=== PATIENT | female | born 1955 ===

== ENCOUNTER 2021-02-13 21:25 | Emergency (ER) | payer OTHER, SELFPAY ==
[2021-02-13 21:32] VITALS: BP 112/64; PULSE 78; O2SAT 98
[2021-02-13 21:33] VITALS: BP 140/73; PULSE 73; RESP 17; TEMP 35.9; O2SAT 95; BMI 38.7
--- NOTE | 2021-02-13 21:56 | PC.NURSE ---
Patient's med rec completed and have patient to review her med list, patient made one correction and okayed the med recs, patient reported she is compliant with her medication, will continue to monitor.
[2021-02-13 22:22] LABS: MANUAL DIFF FLAG NO
[2021-02-13 22:23] LABS: Basophils Percent Auto 0.4 % (0-2); Eosinophils Absolute Auto 0.5 X10*3/uL (0.0-0.4); Eosinophils Percent Auto 6.1 % (0-4); Hematocrit 37.8 % (37-47); Hemoglobin 12.7 g/dl (12.0-16.0); Imm Gran Abs Auto 0.04 X10*3/uL (0.00-0.03); Imm Gran Pct Auto 0.5 % (0.0-0.4); Lymphocytes Absolute Auto 2.7 X10*3/uL (1.2-4.9); Lymphocytes Percent Auto 32.8 % (20-40); Mean Corpuscular HGB Conc 33.6 g/dl (31.0-35.0); Mean Corpuscular Hemoglobin 30.8 pg (27.0-33.0); Mean Corpuscular Volume 91.5 fL (80-98); Mean Platelet Volume 8.8 fL (9.4-12.3); Monocytes Absolute Auto 0.4 X10*3/uL (0.1-1.2); Monocytes Percent Auto 4.5 % (2-11); Neutrophils Absolute Auto 4.5 X10*3/uL (2.0-8.3); Neutrophils Percent Auto 55.7 % (45-73); Platelet Count 301 X10*3/uL (160-400); Red Blood Count 4.13 X10*6/uL (4.20-5.50); Red Cell Distribution Width 13.4 % (11.0-16.0); White Blood Count 8.2 X10*3/uL (4.8-10.8)
[2021-02-13 22:26] LABS: Glucose Urine UA NEG (NEG); Leukocyte Esterase Urine NEG (NEG); Nitrite Urine NEG (NEG); Specific Gravity - Urine <= 1.005 (1.005-1.025); Urine Blood NEG (NEG); Urine Ketones NEG (NEG); Urine Protein NEG (NEG-TRACE)
[2021-02-13 22:27] LABS: Appearance Urine CLEAR; Color Urine STRAW
[2021-02-13 22:42] LABS: Amphetamine Screen Urine Not Detected (Not Detect); Barbiturates, Urine Not Detected (Not Detect); Benzodiazepines Screen Urine Not Detected (Not Detect); Cannabinoid Screen Urine Not Detected (Not Detect); Cocaine Screen Urine Not Detected (Not Detect); Opiate Screen Urine Not Detected (Not Detect); Phencyclidine Screen Urine Not Detected (Not Detect)
[2021-02-13 22:45] LABS: Ethanol 179 mg/dL
[2021-02-13 22:49] LABS: Alanine Aminotransferase 29 U/L (0-31); Albumin Level 4.3 g/dL (3.5-5.0); Alkaline Phosphatase 95 U/L (39-117); Anion Gap 18 (12-20); Aspartate Amino Transferase 22 U/L (5-31); Bilirubin Direct < 0.2 mg/dL (0.0-0.5); Bilirubin Total 0.3 mg/dL (0.0-1.0); Blood Urea Nitrogen 14 mg/dL (9-16); Calcium 9.4 mg/dL (8.4-10.2); Carbon Dioxide 23 mmol/L (22-29); Chloride 103 mmol/L (96-108); Creatinine Clr Calc Pharmacy 82.2; Estimated Glomerular Filt Rate > 60; Glucose Random 80 mg/dL (60-115); Sodium 140 mmol/L (135-145); Total Protein 7.4 g/dL (6.5-8.0)
[2021-02-13 22:56] LABS: COVID-19 Test Negative (Negative); IDNOW Serial# 9DD0AD1C
--- NOTE | 2021-02-13 23:02 | ED_ITS ---
HPI - Psych General Chief Complaint: Psychiatric Symptoms Stated Complaint: SI Time Seen by Provider: 02/13/21 23:02 Source: patient Mode of arrival: EMS History of Present Illness HPI Narrative: 66-year-old female who is brought in by EMS after having called 911 from a [employer] store and reporting that she was feeling depressed and ex periencing suicidal ideation. On further questioning patient states that she got into a verbal altercation with her , but states this is nothing new and there had been multiple stressors. She states that she did drink alcohol and then due to the stressful situation decided that she needed to leave the house and go for a walk. She states that then became late and she got scared. She denies being currently suicidal and feels stressed because although she has a psychiatrist and a therapist she does not feel that they really help . She she says she feels like groups might be better as she feels that it would be a shared experience of people who better know what I am going through . Patient states that she often gets triggered by her and that it seems to be happening more frequently. Related Data Home Medications Medication Instructions Recorded Confirmed clonazepam 0.5 - 1 tab PO TID PRN 02/13/21 02/13/21 gabapentin 800 mg PO BID 02/13/21 02/13/21 hydrochlorothiazide 25 mg PO DAILY 02/13/21 02/13/21 oxcarbazepine 150 mg PO TID 02/13/21 02/13/21 simvastatin 20 mg PO BEDTIME 02/13/21 02/13/21 venlafaxine 150 mg PO BID 02/13/21 02/13/21 Allergies Allergy/AdvReac Type Severity Reaction Status Date / Time No Known Allergies Allergy Unverified 04/30/20 17:00 Review of Systems Review of Systems: Pertinent positives and negatives as stated in HPI 10 point review of systems is otherwise negative. [facility] Past Medical History Source: nursing notes reviewed Social History Social History Advance Directives: No Advance Directives Information Provided: Yes Physical Exam Vital Signs: Vital Signs: Last Vital Signs Temp 98.7 F 02/14/21 00:18 Pulse 74 02/14/21 00:18 Resp 17 02/14/21 00:18 BP 117/52 L 02/14/21 00:18 Pulse Ox 98 07/04/21 00:18 Body Mass Index 38.7 VITAL SIGNS: Reviewed. GENERAL: Well developed, well nourished, in no acute distress. HEAD: Normocephalic/atraumatic EYES: PERRLA, EOMI OROPHARYNX: no oral lesions noted, posterior pharynx clear LUNGS: Normal breath sounds. No adventitious sounds or accessory muscle use. SpO2<98> CARDIOVASCULAR: Regular rate and rhythm without noted murmurs ABDOMEN: Soft, non-tender, non-distended with bowel sounds. SKIN: Inspection of the skin reveals no rashes NEUROLOGIC: Alert and oriented x 4. Strength and sensation to light touch were grossly intact x 4. Course Course Course Narrative: 66-year-old female with history and clinical presentation consistent with depression, suicidal thoughts likely secondary to situational events as well as intoxication with alcohol. However, patient was encouraged to speak with the behavioral team express her wishes for a group setting. Patient is otherwise medically cleared for evaluation by the behavioral team. Reevaluation(s) Reevaluation #1: Patient placed in physician observation because the patient needed more time to become sober and be evaluated by the behavioral team. At the time observation was started the patient's vital signs were stable, patient is alert and oriented, neuro: Nonfocal, CV RRR, lungs clear MDM - Psych Lab Data Result diagrams: 02/13/21 22:00 02/13/21 22:09 Labs: Lab Results 02/13/21 02/13/21 02/13/21 Range/Units 22:00 22:00 22:01 WBC 8.2 (4.8-10.8) X10*3/uL RBC 4.13 L (4.20-5.50) X10*6/uL Hgb 12.7 (12.0-16.0) g/dl Hct 37.8 (37-47) % MCV 91.5 (80-98) fL MCH 30.8 (27.0-33.0) pg MCHC 33.6 (31.0-35.0) g/dl RDW 13.4 (11.0-16.0) % Plt Count 301 (160-400) X10*3/uL MPV 8.8 L (9.4-12.3) fL Immature Gran % (Auto) 0.5 H (0.0-0.4) % Neut % (Auto) 55.7 (45-73) % Lymph % (Auto) 32.8 (20-40) % [place] % (Auto) 4.5 (2-11) % Eos % (Auto) 6.1 H (0-4) % Baso % (Auto) 0.4 (0-2) % Lymph # (Auto) 2.7 (1.2-4.9) X10*3/uL [place] # (Auto) 0.4 (0.1-1.2) X10*3/uL Eos # (Auto) 0.5 H (0.0-0.4) X10*3/uL Baso # (Auto) 0.0 (0.0-0.2) X10*3/uL Abs Immat Gran (auto) 0.04 H (0.00-0.03) X10*3/uL Absolute Neuts (auto) 4.5 (2.0-8.3) X10*3/uL Absolute Nucleated RBC 0.000 (0.0-0.012) X10*3/uL Nucleated RBC % (auto) 0.0 (0.0-0.2) /100WBC Sodium (135-145) mmol/L Potassium (3.3-5.1) mmol/L Chloride (96-108) mmol/L Carbon Dioxide (22-29) mmol/L Anion Gap (12-20) BUN (9-16) mg/dL Creatinine (0.5-1.4) mg/dL Estim Creat Clear Calc Estimated GFR Random Glucose (60-115) mg/dL Calcium (8.4-10.2) mg/dL Total Bilirubin (0.0-1.0) mg/dL Direct Bilirubin (0.0-0.5) mg/dL AST (5-31) U/L ALT (0-31) U/L Alkaline Phosphatase (39-117) U/L Total Protein (6.5-8.0) g/dL Albumin (3.5-5.0) g/dL Urine Color Urine Appearance Urine pH (5.0-8.0) Ur Specific [place] (1.005-1.025) Urine Protein (NEG-TRACE) MG/DL Urine Glucose (UA) (NEG) MG/DL Urine Ketones (NEG) MG/DL Urine Blood (NEG) Urine Nitrite (NEG) Ur Leukocyte Esterase (NEG) Urine Opiates Screen Not Detected (Not Detect) Ur Barbiturates Screen Not Detected (Not Detect) Ur Phencyclidine Scrn Not Detected (Not Detect) Ur Amphetamines Screen Not Detected (Not Detect) U Benzodiazepines Scrn Not Detected (Not Detect) Urine Cocaine Screen Not Detected (Not Detect) U Marijuana (THC) Screen Not Detected (Not Detect) Ethyl Alcohol mg/dL COVID-19 (AFSANEH) Negative (Negative) COVID-19 Clin Com See Note 02/13/21 02/13/21 02/13/21 Range/Units 22:01 22:09 22:09 WBC (4.8-10.8) X10*3/uL RBC (4.20-5.50) X10*6/uL Hgb (12.0-16.0) g/dl Hct (37-47) % MCV (80-98) fL MCH (27.0-33.0) pg MCHC (31.0-35.0) g/dl RDW (11.0-16.0) % Plt Count (160-400) X10*3/uL MPV (9.4-12.3) fL Immature Gran % (Auto) (0.0-0.4) % Neut % (Auto) (45-73) % Lymph % (Auto) (20-40) % [place] % (Auto) (2-11) % Eos % (Auto) (0-4) % Baso % (Auto) (0-2) % Lymph # (Auto) (1.2-4.9) X10*3/uL [place] # (Auto) (0.1-1.2) X10*3/uL Eos # (Auto) (0.0-0.4) X10*3/uL Baso # (Auto) (0.0-0.2) X10*3/uL Abs Immat Gran (auto) (0.00-0.03) X10*3/uL Absolute Neuts (auto) (2.0-8.3) X10*3/uL Absolute Nucleated RBC (0.0-0.012) X10*3/uL Nucleated RBC % (auto) (0.0-0.2) /100WBC Sodium 140 (135-145) mmol/L Potassium 4.0 (3.3-5.1) mmol/L Chloride 103 (96-108) mmol/L Carbon Dioxide 23 (22-29) mmol/L Anion Gap 18 (12-20) BUN 14 (9-16) mg/dL Creatinine 0.70 (0.5-1.4) mg/dL Estim Creat Clear Calc 82.2 Estimated GFR > 60 Random Glucose 80 (60-115) mg/dL Calcium 9.4 (8.4-10.2) mg/dL Total Bilirubin 0.3 (0.0-1.0) mg/dL Direct Bilirubin < 0.2 (0.0-0.5) mg/dL AST 22 (5-31) U/L ALT 29 (0-31) U/L Alkaline Phosphatase 95 (39-117) U/L Total Protein 7.4 (6.5-8.0) g/dL Albumin 4.3 (3.5-5.0) g/dL Urine Color STRAW Urine Appearance CLEAR Urine pH 6.0 (5.0-8.0) Ur Specific [place] <= 1.005 (1.005-1.025) Urine Protein NEG (NEG-TRACE) MG/DL Urine Glucose (UA) NEG (NEG) MG/DL Urine Ketones NEG (NEG) MG/DL Urine Blood NEG (NEG) Urine Nitrite NEG (NEG) Ur Leukocyte Esterase NEG (NEG) Urine Opiates Screen (Not Detect) Ur Barbiturates Screen (Not Detect) Ur Phencyclidine Scrn (Not Detect) Ur Amphetamines Screen (Not Detect) U Benzodiazepines Scrn (Not Detect) Urine Cocaine Screen (Not Detect) U Marijuana (THC) Screen (Not Detect) Ethyl Alcohol 179 mg/dL COVID-19 (AFSANEH) (Negative) COVID-19 Clin Com Discharge Plan Discharge Clinical Impression: Alcohol intoxication Prescriptions: No Action oxcarbazepine 150 mg tablet 150 mg PO TID RF: 0 clonazepam 0.5 mg tablet 0.5 - 1 tab PO TID PRN (Reason: anxiety) RF: 0 venlafaxine 150 mg capsule,extended release 24hr 150 mg PO BID RF: 0 gabapentin 800 mg tablet 800 mg PO BID RF: 0 simvastatin 20 mg tablet 20 mg PO BEDTIME RF: 0 hydrochlorothiazide 25 mg tablet 25 mg PO DAILY RF: 0
[2021-02-14 00:18] VITALS: BP 117/52; PULSE 74; RESP 17; TEMP 37.1; O2SAT 98
--- NOTE | 2021-02-14 01:42 | PC.NURSE ---
Patient's Michael Priest (cell# [phone]) and daughter An Priest (cell#[phone]) came to visit while patient was sleeping, this residential mortgage underwriter spoke with family and informed them that patient is safe and she is sleeping, information was updated to them as per patient's prior approval. Patient is in bed appears sleeping, no distress observed/reported, Will continue to monitor.
--- NOTE | 2021-02-14 06:26 | PC.NURSE ---
Patient in bed appears sleeping, no distress observed/reported, VSS, patient was x 1 for bathroom use and back, patient is to be seen by care team this morning, med recs completed, pending provider's approval, will continue to monitor.
--- NOTE | 2021-02-14 07:05 | PC.NURSE ---
patient appears to remain at rest appears in no distress, respirations are even and unlabored
[2021-02-14 11:45] VITALS: BP 161/84; PULSE 73; RESP 16; TEMP 37.1; O2SAT 96
== END 2021-02-14 13:22 | disposition home or self-care (01) ==
PROVIDERS: Nurse Practitioner Family; Emergency Provider Student in an Organized Health Care Education/Training Program; PCP Internal Medicine
DX: F10.920 Alcohol use, unspecified with intoxication, uncomplicated (principal); Y90.6 Blood alcohol level of 120-199 mg/100 ml; F32.9 Major depressive disorder, single episode, unspecified; R45.851 Suicidal ideations; Z20.822 Contact with and (suspected) exposure to COVID-19
CPT/HCPCS: 36415; 80048; 80076; 80307; 81003; 82077; 85025; 87635; 99283; 99285

== ENCOUNTER 2022-01-05 14:06 | Outpatient (REF) | payer OTHER, SELFPAY ==
[2022-01-05 16:28] LABS: Alanine Aminotransferase 27 U/L (0-31); Anion Gap 14 (12-20); Aspartate Amino Transferase 20 U/L (5-31); Blood Urea Nitrogen 28 mg/dL (9-16); Carbon Dioxide 27 mmol/L (22-29); Chloride 104 mmol/L (96-108); Estimated Glomerular Filt Rate > 60; Potassium 4.4 mmol/L (3.3-5.1); Sodium 141 mmol/L (135-145)
[2022-01-05 16:52] LABS: Free T4 (Free Thyroxine) 0.99 ng/dL (0.71-1.85); Thyroid Stimulating Hormone 2.55 uIU/mL (0.32-4.0)
== END 2022-01-05 14:07 | disposition home or self-care (01) ==
LOC: HO.LAB 14:06
PROVIDERS: PCP Family Medicine; Visit Provider Family Medicine
DX: I10 Essential (primary) hypertension (principal); E78.00 Pure hypercholesterolemia, unspecified; E03.9 Hypothyroidism, unspecified; Z79.899 Other long term (current) drug therapy
CPT/HCPCS: 36415; 80051; 82550; 82565; 84439; 84443; 84450; 84460; 84520

== ENCOUNTER 2022-04-04 15:07 | Outpatient (REF) | payer OTHER, SELFPAY ==
[2022-04-04 15:58] LABS: Baso%MD 0.4 %; Eos%MD 4.3 %; Hemoglobin 13.4 g/dl (12.0-16.0); Lymph%MD 26.6 %; Mean Corpuscular HGB Conc 33.5 g/dl (31.0-35.0); Mean Corpuscular Volume 92.6 fL (80.0-98.0); Mean Platelet Volume 9.4 fL (9.4-12.3); Mono%MD 5.2 %; Neut%MD 62.5 %; Platelet Count 364 X10*3/uL (160-400); Red Blood Count 4.32 X10*6/uL (4.20-5.50); Red Cell Distribution Width 12.6 % (11.0-16.0); White Blood Count 9.4 X10*3/uL (4.8-10.8)
[2022-04-04 16:34] LABS: Alanine Aminotransferase 33 U/L (0-31); Albumin Level 4.4 g/dL (3.5-5.0); Alkaline Phosphatase 101 U/L (39-117); Anion Gap 21 (12-20); Aspartate Amino Transferase 18 U/L (5-31); Bilirubin Total 0.4 mg/dL (0.0-1.0); Blood Urea Nitrogen 23 mg/dL (9-16); Calcium 9.7 mg/dL (8.4-10.2); Carbon Dioxide 25 mmol/L (22-29); Chloride 102 mmol/L (96-108); Estimated Glomerular Filt Rate 55; Glucose Random 134 mg/dL (60-115); Potassium 3.5 mmol/L (3.3-5.1); Sodium 144 mmol/L (135-145); Total Protein 7.7 g/dL (6.5-8.0)
[2022-04-04 17:58] LABS: Acanthocytes 1+ (0-2) /OIF; Band Neutrophils Percent 0 % (3-5); Basophils Abs Manual 0.1 X10*3/uL (0.0-0.2); Basophils Percent Manual 1 % (0-2); Eosinophils Absolute Manual 0.2 X10*3/uL (0.0-0.4); Eosinophils Percent Manual 2 % (0-4); Lymphocytes Absolute Manual 2.5 X10*3/uL (1.2-4.9); Lymphocytes Percent Manual 27 % (20-40); Metamyelocytes Absolute 0.1 X10*3/uL; Metamyelocytes Percent 1 %; Monocytes Absolute Manual 0.3 X10*3/uL (0.1-1.2); Monocytes Percent Manual 3 % (2-11); Neutrophils Absolute Manual 6.2 X10*3/uL (2.0-8.3); Neutrophils Percent Manual 66 % (45-73); Platelet Estimate NORMAL (NORMAL); Platelet Morphology Comment NORMAL; Polychromasia 1+ (0-2) /OIF; RBC Morphology NORMAL
== END 2022-04-04 15:08 | disposition home or self-care (01) ==
LOC: HO.LAB 15:07
PROVIDERS: PCP Family Medicine; Visit Provider Nurse Practitioner Psychiatric/Mental Health
DX: F33.1 Major depressive disorder, recurrent, moderate (principal); F41.1 Generalized anxiety disorder; Z79.899 Other long term (current) drug therapy
CPT/HCPCS: 36415; 80053; 85007; 85027

== ENCOUNTER 2022-09-28 14:39 | Outpatient (REF) | payer OTHER, SELFPAY ==
[2022-09-28 15:50] LABS: Estimated Average Glucose 117 mg/dL; Hemoglobin A1c % 5.7 %
[2022-09-28 16:22] LABS: Alanine Aminotransferase 20 U/L (0-31); Cholesterol 194 mg/dL; Glucose Fasting 82 mg/dL (60-99); HDL Cholesterol 62 mg/dL; LDL Cholesterol Calculated 105 mg/dl; Triglycerides 137 mg/dL
[2022-09-28 16:38] LABS: Free T4 (Free Thyroxine) 1.05 ng/dL (0.71-1.85); Thyroid Stimulating Hormone 1.01 uIU/mL (0.32-4.0)
== END 2022-09-28 14:40 | disposition home or self-care (01) ==
LOC: HO.LAB 14:39
PROVIDERS: PCP Family Medicine; Visit Provider Family Medicine
DX: E78.00 Pure hypercholesterolemia, unspecified (principal); E03.9 Hypothyroidism, unspecified; I10 Essential (primary) hypertension; Z79.899 Other long term (current) drug therapy
CPT/HCPCS: 36415; 80061; 82550; 82947; 83036; 84439; 84443; 84460

== ENCOUNTER → 2022-10-18 14:57 | Outpatient (BNVA) | payer OTHER, SELFPAY | PROVIDERS: PCP Family Medicine; Visit Provider Nurse Practitioner Family | DX: Z13.89 Encounter for screening for other disorder (principal) ==

== ENCOUNTER 2023-04-01 09:27 | Outpatient (REF) | payer OTHER, SELFPAY ==
[2023-04-01 09:38] LABS: MANUAL DIFF FLAG NO
[2023-04-01 09:47] LABS: Basophils Absolute Auto 0.1 X10*3/uL (0.0-0.2); Basophils Percent Auto 0.7 % (0-2); Eosinophils Absolute Auto 0.5 X10*3/uL (0.0-0.4); Eosinophils Percent Auto 7.7 % (0-4); Hematocrit 42.1 % (37.0-47.0); Hemoglobin 13.8 g/dl (12.0-16.0); Imm Gran Abs Auto 0.07 X10*3/uL (0.00-0.03); Lymphocytes Absolute Auto 2.3 X10*3/uL (1.2-4.9); Lymphocytes Percent Auto 34.1 % (20-40); Mean Corpuscular HGB Conc 32.8 g/dl (31.0-35.0); Mean Corpuscular Hemoglobin 30.6 pg (27.0-33.0); Mean Corpuscular Volume 93.3 fL (80.0-98.0); Mean Platelet Volume 8.8 fL (9.4-12.3); Monocytes Absolute Auto 0.4 X10*3/uL (0.1-1.2); Monocytes Percent Auto 6.5 % (2-11); Neutrophils Absolute Auto 3.4 x10*3/uL (2.0-8.3); Platelet Count 364 X10*3/uL (160-400); Red Blood Count 4.51 X10*6/uL (4.20-5.50); White Blood Count 6.8 X10*3/uL (4.8-10.8)
[2023-04-01 09:54] LABS: Estimated Average Glucose 111 mg/dL; Hemoglobin A1c % 5.5 %
[2023-04-01 10:07] LABS: Anion Gap 14 (12-20); Blood Urea Nitrogen 13 mg/dL (9-16); Calcium 9.6 mg/dL (8.4-10.2); Carbon Dioxide 30 mmol/L (22-29); Chloride 100 mmol/L (96-108); Cholesterol 218 mg/dL; Estimated Glomerular Filt Rate > 60; Glucose Fasting 87 mg/dL (60-99); Glucose Random 88 mg/dL (60-115); HDL Cholesterol 56 mg/dL; LDL Cholesterol Calculated 107 mg/dl; Potassium 4.3 mmol/L (3.3-5.1); Sodium 140 mmol/L (135-145); Triglycerides 278 mg/dL
== END 2023-04-01 09:28 | disposition home or self-care (01) ==
LOC: HO.LAB 09:27
PROVIDERS: PCP Family Medicine; Visit Provider Family Medicine
DX: F41.1 Generalized anxiety disorder (principal); F33.1 Major depressive disorder, recurrent, moderate; Z79.899 Other long term (current) drug therapy
CPT/HCPCS: 36415; 80048; 80061; 83036; 85025

== ENCOUNTER 2023-07-11 14:30 | Outpatient (REF) | payer OTHER, SELFPAY ==
[2023-07-11 16:20] LABS: Thyroid Stimulating Hormone 3.57 uIU/mL (0.32-4.0)
== END 2023-07-11 14:31 | disposition home or self-care (01) ==
LOC: HO.LAB 14:30
PROVIDERS: PCP Family Medicine; Visit Provider Family Medicine
DX: E03.9 Hypothyroidism, unspecified (principal)
CPT/HCPCS: 36415; 84439; 84443

== ENCOUNTER 2023-09-09 09:29 | Outpatient (REF) | payer OTHER, SELFPAY ==
--- NOTE | ~2023-09-09 | XR_ITS ---
EXAMINATION: XR LUMBOSACRAL SPINE CLINICAL INFORMATION: Back pain. COMPARISON: None available. TECHNIQUE: AP and lateral views of the lumbar spine and lateral view of the lumbosacral junction. FINDINGS: There is bony demineralization. Vertebral body heights are normal. There is a mild thoracolumbar levoscoliosis. At L2-L3, there is mild to moderate disc space narrowing, with accompanying endplate spondylosis. At L5-S1, there is mild to moderate degenerative disc disease, with a 5 mm anterolisthesis. The remaining disc spaces are relatively well-maintained. No acute fracture or spondylolisthesis is seen. There is further anterior spondylosis at T10-T11 and T11-T12. The posterior elements are intact. There is facet arthropathy, most pronounced at L5-S1. The paravertebral soft tissues are unremarkable. A sacral stimulator device is seen. There are pelvic phleboliths. XR/XR lumbar spine 2-3V IMPRESSION: 1. There is mild to moderate degenerative disc disease at L2-L3 and L5-S1. 2. There is multi-level thoracolumbar spondylosis. 3. There is facet arthropathy, most pronounced at L5-S1. 4. There is a mild thoracolumbar levoscoliosis.
== END 2023-09-09 09:30 | disposition home or self-care (01) ==
LOC: HO.XRAY 09:29
PROVIDERS: PCP Family Medicine; Visit Provider Family Medicine
DX: M54.50 Low back pain, unspecified (principal)
CPT/HCPCS: 72100

== ENCOUNTER 2023-10-12 15:26 | Outpatient (REF) | payer OTHER, SELFPAY ==
--- NOTE | 2023-10-12 15:34 | EMG_ITS ---
Chief complaint: History of stroke affecting left side, chronic back pain, fibromyalgia, chronic pain and burning on right foot. No footdrop. Reason for referral: Evaluate for neuropathy Referred by: Dr. Epstein Procedure done: Right lower extremity NCS/EMG Precautions and/or limitations: None The limb temperature was monitored continuously and remained between 32-36 degrees C during the performance of the NCS. Nerve Conduction Studies Anti Sensory Summary Table ?Stim Site NR Onset (ms) Norm Onset (ms) Peak (ms) Norm Peak (ms) O-P Amp (?V) Norm O-P Amp Site1 Site2 Delta-0 (ms) Dist (cm) Sylvester (m/s) Norm Sylvester (m/s) Right Sural Anti Sensory (Lat Mall) Calf ? 2.9 3.9 <4.0 10.7 >5.0 Calf Lat Mall 2.9 14.0 48 Motor Summary Table ?Stim Site NR Onset (ms) Norm Onset (ms) O-P Amp (mV) Norm O-P Amp iAmp (mV) Amp (1st) (%) Site1 Site2 Delta-0 (ms) Dist (cm) Sylvester (m/s) Norm Sylvester (m/s) Right Peroneal Motor (Ext Dig Brev) Ankle ? 3.9 <4.0 4.9 >2.5 5.9 100.0 Ankle Ext Dig Brev 3.9 0.0 B Fib ? 10.5 4.6 5.7 93.9 B Fib Ankle 6.6 32.0 48 >40 Poplt ? 11.2 4.6 5.5 93.9 Poplt B Fib 0.7 4.0 57 >40 Right Tibial Motor (Abd العراقي Brev) Ankle ? 4.4 <5 13.1 >2.5 17.8 100.0 Ankle Abd العراقي Brev 4.4 0.0 Knee ? 10.4 6.1 8.9 46.6 Knee Ankle 6.0 36.0 60 >40 EMG ?Side Muscle Nerve Root Ins Act Fibs Psw Amp Dur Poly Recrt Int Pat Comment Right AbdHallucis MedPlantar S1-2 Nml Nml Nml Nml Nml 0 Nml Complete Right AntTibialis Dp Br Peron L4-5 Nml Nml Nml Nml Nml 0 Nml Complete Right PostTibialis Tibial L5, S1 Nml Nml Nml Nml Nml 0 Nml Complete Right MedGastroc Tibial S1-2 Nml Nml Nml Nml Nml 0 Nml Complete Right VastusMed Femoral L2-4 Nml Nml Nml Nml Nml 0 Nml Complete Paraspinal EMG ?Side Muscle Nerve Root Ins Act Fibs Psw Comment Right Lumbar Upper Rami Nml Nml Nml Right Lumbar Mid Rami Nml Nml Nml Right Lumbar Lower Rami Nml Nml Nml FINDINGS: All motor and sensory nerves tested showed normal latencies, amplitudes and conduction velocities. Concentric needle EMG was performed in selected muscles of the right lower extremity and lumbar paraspinals. Study did not reveal signs of electric abnormalities as shown in the table below. IMPRESSION: 1. This is a normal study. 2. There is no electrodiagnostic evidence for peroneal neuropathy, tibial neuropathy, lumbosacral plexopathy, lumbar radiculopathy, or peripheral neuropathy. Thank you for your kind referral. Cony Redd MD, JOY Board Certified, [place] [employer] and [employer] (ABPMR) Board Certified, [place] Board [employer] Electrodiagnostic [employer] (ABEM) [place] [id number] [facility]
== END 2023-10-12 15:27 | disposition home or self-care (01) ==
LOC: HO.NEURO 15:26
PROVIDERS: PCP Family Medicine; Visit Provider Family Medicine
DX: M79.671 Pain in right foot (principal); M46.46 Discitis, unspecified, lumbar region
CPT/HCPCS: 95886; 95908

== ENCOUNTER → 2023-10-12 15:34 | Outpatient (BNV) | payer OTHER, SELFPAY | PROVIDERS: PCP Family Medicine; Visit Provider Physical Medicine & Rehabilitation | DX: M79.604 Pain in right leg (principal); G89.29 Other chronic pain | CPT/HCPCS: 95886; 95908 ==

== ENCOUNTER 2023-11-11 09:58 | Outpatient (REF) | payer OTHER, SELFPAY ==
--- NOTE | ~2023-11-11 | XR_ITS ---
EXAMINATION: XR HIP, RIGHT CLINICAL INFORMATION: Pain. COMPARISON: None available. TECHNIQUE: AP and frog-leg lateral views of the right hip. FINDINGS: No fracture. Alignment is anatomic. Hip joint space is maintained. Soft tissues are unremarkable. A left sacral stimulator electrode is noted. XR/XR hip RT min 2V IMPRESSION: Normal right hip.
== END 2023-11-11 09:59 | disposition home or self-care (01) ==
LOC: HO.XRAY 09:58
PROVIDERS: PCP Family Medicine; Visit Provider Family Medicine
DX: M25.551 Pain in right hip (principal)
CPT/HCPCS: 73502

== ENCOUNTER 2024-01-22 15:29 | Outpatient (AMB) | payer OTHER, SELFPAY ==
--- NOTE | 2024-01-22 15:34 | A.OFFVIS_ITS ---
Intake Visit Reasons: incontinence and removal of old stimulator Intake Note: New Patient presents today for initial visit to establish treatment for : Consultation of InterStim removal Urology Medications: none Allergies to Antibiotic: none Blood Thinner: none PVR: 0ml's Location Manager Required: No Accompanied by: Unknown Allergies No Known Allergies Allergy (Unverified 01/22/24 16:12) Medication List - Last Reconciled 01/22/24 by BAHMAN Leary-ARSENIO clonazepam 0.5 - 1 tabs PO TID PRN gabapentin 800 mg PO BID hydrochlorothiazide 25 mg PO DAILY oxcarbazepine 150 mg PO TID simvastatin 20 mg PO BEDTIME venlafaxine ER 150 mg PO BID HPI Comments Details: Micheline is a very pleasant 69-year-old female patient of Dr. Epstein who was accompanied by her at today's office visit. She has a past medical history of depression, hyperlipidemia, and hypertension. She presents to the office today as a new patient for consultation for removal of InterStim she had placed in 2017 with [facility]. She reports feeling this has not been helpful in treating her lower urinary tract symptoms. She discusses wanting to have it removed for multiple reasons. She discusses following up with her Rheumatology and recommendations were made for removal. When asked she does report continuation of urinary urgency, urinary frequency, and episodes of incontinence if not near a bathroom. She otherwise denies hematuria, dysuria, foul smelling urine, changes to urinary stream, flank pain, fever, and or chills. Unable to obtain urine for urinalysis today however PVR 0 mL. Discussed obtaining previous urology records for continuity of care. Discussed obtaining KUB for further assessment evaluation of placement of InterStim. Discussed further treatment options prior to removal such as revision of lead however patient is adamant that she would like to have this removed. She otherwise offers no other issues or concerns at this time. COUNT INCLUDES THE [facility] Surgical History History of carpal tunnel surgery Family History Mother HTN (hypertension) Sister HTN (hypertension) Social History Alcohol intake: current Patient Tobacco Use Status: Never used Tobacco Review of Systems Const All systems reviewed & are unremarkable except as noted in HPI and below Physical Exam Const General: cooperative, healthy appearing, comfortable, no acute distress, well developed, alert and awake Nutritional Appearance: overweight Orientation/consciousness: patient oriented x3 Limitations: no limitations HEENT Head: Yes normal to inspection, Yes normocephalic and Yes atraumatic Ears: hearing grossly normal bilaterally Eyes General: appearance normal, both eyes and all related structures Neck Neck: Yes normal visual inspection and Yes trachea midline Chest Chest palpation & inspection: normal inspection of the chest Resp Effort & Inspection: normal respiratory effort and able to speak in complete sentences Cardio Rate: regular rate GI Inspection: Yes normal to inspection General: Yes no CVA tenderness Back/Spine/Pelvis Back: no CVA tenderness Skin General skin exam: no rashes or lesions noted Neuro General: patient oriented x3 Extrem General: Yes normal to inspection Psych Appearance: grossly normal and well kempt Mental Status: mental status grossly normal Speech and movement: Normal speech and movement present and Clear speech present Affect: normal affect Attitude: cooperative Thought process: Normal thought process present Thought content: Normal thought content present Insight: Fair insight present (Psych) Judgement: Fair judgement present (Psych) Office Procedures Post Void Residual Post Residual Void Post Void Residual (PVR): 0 [id number] Void Residual by ultrasound Assessment & Plan Assessment & Plan (1) Lower urinary tract symptoms: Code(s): R39.9 - Unspecified symptoms and signs involving the genitourinary system Category: Medical (2) Urinary urgency: Code(s): R39.15 - Urgency of urination Category: Medical (3) Urinary frequency: Code(s): R35.0 - Frequency of micturition Category: Medical (4) Urinary incontinence, mixed: Code(s): N39.46 - Mixed incontinence Category: Medical Plan Unable to obtain urine for urinalysis however PVR 0 mL. Medical release form signed will attempt to obtain previous urology records for continuity of care. Discussed further treatment options such as revision of lead verses removal of InterStim; risks and benefits of these interventions were discussed at length. Will obtain KUB for further assessment evaluation. Discussed further treatment options for lower urinary tract symptoms patient is experiencing such as pelvic floor therapy, medications, and or in office urodynamics for further assessment evaluation. Follow-up in 1-[address] Bahena for further assessment evaluation with imaging to be completed prior; or sooner with any issues, concerns, and or questions. Orders: Orders AMB Urinalysis Automated Today Z13.9 - Encounter for screening, unspecified AMB Post Void Residual by ultrasound Today Z13.9 - Encounter for screening, unspecified XR KUB Today R39.9 - Unspecified symptoms and signs involving the genitourinary system Patient Instructions: The patient had an opportunity to ask questions regarding the treatment plan. All questions were answered. Physical exam, labs, and imaging were discussed and reviewed in detail. As well as risks, benefits, and discussion of treatment choices. No major barriers to understanding were identified. The patient expressed understanding and agreement with the above treatment plan. The patient was made aware they should contact our office by phone for worsening of their current condition, the appearance of new symptoms, or with any questions or concerns. Compliance is encouraged with any medications and follow up testing that is ordered. It is a privilege to be allowed the opportunity to participate in? your urological care.? Again, if you have any questions or concerns If you have any questions or concerns please do not hesitate to contact me. The office is [phone]. This note is constructed using voice recognition software. While every effort has been made to ensure accuracy food beverage supervisor errors may have been included. Yours sincerely, OLIVERIO Leary Coding Level of Care Code New Pt Level 3 (53311) Diagnoses Lower urinary tract symptoms R39.9 Urinary urgency R39.15 Urinary frequency R35.0 Urinary incontinence, mixed N39.46 CPT Codes Post Residual Void - PVR CPT Code: 25849-Drrh Void Residual by ultrasound ([id number])
== END 2024-01-22 16:12 | disposition home or self-care (01) ==
PROVIDERS: PCP Family Medicine; Visit Provider Nurse Practitioner Family
DX: R39.9 Unspecified symptoms and signs involving the genitourinary system (principal); R39.15 Urgency of urination; R35.0 Frequency of micturition
CPT/HCPCS: 99203

== ENCOUNTER → 2024-01-22 15:29 | Outpatient (BNVA) | payer OTHER, SELFPAY | PROVIDERS: PCP Family Medicine; Visit Provider Nurse Practitioner Family | DX: R39.9 Unspecified symptoms and signs involving the genitourinary system (principal); N39.46 Mixed incontinence; R35.0 Frequency of micturition | CPT/HCPCS: 51798 ==

== ENCOUNTER 2024-01-27 10:21 | Outpatient (REF) | payer OTHER, SELFPAY ==
[2024-01-27 11:29] LABS: Anion Gap 16 (12-20); Blood Urea Nitrogen 16 mg/dL (9-16); Calcium 9.5 mg/dL (8.4-10.2); Carbon Dioxide 25 mmol/L (22-29); Chloride 107 mmol/L (96-108); Estimated Glomerular Filt Rate > 60; Glucose Random 113 mg/dL (60-115); Sodium 144 mmol/L (135-145)
[2024-01-27 11:48] LABS: Free T4 (Free Thyroxine) 0.75 ng/dL (0.71-1.85); Thyroid Stimulating Hormone 2.75 uIU/mL (0.32-4.0)
== END 2024-01-27 10:22 | disposition home or self-care (01) ==
LOC: HO.LAB 10:21
PROVIDERS: PCP Family Medicine; Visit Provider Family Medicine
DX: I10 Essential (primary) hypertension (principal); E03.9 Hypothyroidism, unspecified; K75.81 Nonalcoholic steatohepatitis (NASH)
CPT/HCPCS: 36415; 80048; 84439; 84443

== ENCOUNTER 2024-03-09 10:13 | Outpatient (REF) | payer OTHER, SELFPAY ==
--- NOTE | ~2024-03-09 | XR_ITS ---
EXAMINATION: XR ABDOMEN KUB CLINICAL INDICATION: Unspecified symptoms and signs involving the genitourinary system. InterStim placement. COMPARISON: CT abdomen and pelvis of November 07, 2015, XR lumbar spine September 09, 2023. TECHNIQUE: 2 AP views of the abdomen. FINDINGS: Degenerative changes in the lumbar spine. Nonobstructive bowel gas pattern. [id number] amount of stool in the colon. Electronic device overlies the left iliac wing with lead tip overlying the inferolateral aspect of the sacrum on the left. XR/XR KUB IMPRESSION: Electronic device overlies the left iliac wing with lead tip overlying the inferolateral aspect of the sacrum on the left.
== END 2024-03-09 10:14 | disposition home or self-care (01) ==
LOC: HO.XRAY 10:13
PROVIDERS: PCP Family Medicine; Visit Provider Nurse Practitioner Family
DX: R39.9 Unspecified symptoms and signs involving the genitourinary system (principal)
CPT/HCPCS: 74018

== ENCOUNTER 2024-03-13 14:28 | Outpatient (AMB) | payer OTHER, SELFPAY ==
--- NOTE | 2024-03-13 14:37 | A.OFFVIS_ITS ---
Intake Visit Reasons: 2m/KUB(set) Intake Note: Patient is Present for Follow Up KUB Urology Medication:None Antibiotic Allergies:None Blood Thinners: None Patient states that she has a lot of frequency during the day, alot of times she doesn't feel it all the time. She reports that she does feel like empty her bladder. Currently no on any medication for bladder control states many years ago she may have been on some. Express Manager Required: No Allergies No Known Allergies Allergy (Unverified 01/22/24 16:12) HPI Comments Details: Micheline is a pleasant female. She is a patient of Dr. Epstein. She seen for the following urologic conditions - urinary urgency and frequency Urinary urgency and frequency InterStim placed 2013 Has not been working for a number of years Was successful previously Was interested in removal primarily secondary to MRI considerations as highlighted to her by her puncher Discussion today focused on updated InterStim lead which is MRI safe Updated pacemaker which has plateaued compatible and is easy to monitor than previously She is interested in moving had [facility] Surgical History History of carpal tunnel surgery Family History Mother HTN (hypertension) Sister HTN (hypertension) Social History Alcohol intake: current Patient Tobacco Use Status: Never used Tobacco Review of Systems Const Denies chills and Denies fever(s) Card Reports no additional complaints and Denies syncope Resp Denies cough GI Denies abdominal pain and Denies heartburn Reports as per HPI and Denies change in libido Neuro Denies syncope Psych Denies change in libido Endo Denies change in libido Physical Exam Const General: cooperative, healthy appearing, comfortable and no acute distress Orientation/consciousness: patient oriented x3 HEENT Face and sinus: Yes normal facial exam Mouth: moist mucous membranes Neck Neck: Yes normal visual inspection, Yes full ROM and Yes trachea midline Chest Chest palpation & inspection: normal inspection of the chest Resp Effort & Inspection: normal respiratory effort, able to speak in complete sentences and no respiratory distress GI Inspection: Yes normal to inspection Back/Spine/Pelvis Cervical Spine: normal cervical lordosis Thoracic/Lumbar Spine: thoracic and lumbar spine normal to inspection Skin General skin exam: no rashes or lesions noted Neuro General: patient oriented x3, gait normal, tone normal and moves all extremities Extrem General: Yes normal to inspection and Yes capillary refill normal Assessment & Plan Assessment & Plan (1) Urinary urgency: Code(s): R39.15 - Urgency of urination Category: Medical (2) Urinary frequency: Code(s): R35.0 - Frequency of micturition Category: Medical Plan Risks, benefits and alternatives to therapy were discussed. These include but are not limited to infection, bleeding, damage to local organs and tissues, need for further interventions. Anesthetic risks regarding cardiac arrhythmia, blood clots, and potential mortality were discussed. The patient understands the typical recovery time and the outpatient nature of the procedure. After consideration of these risks the patient gives full informed consent and they wish to move ahead with the procedure. InterStim removal and replacement Patient Instructions: Imaging studies, laboratory and physical exam results were discussed and reviewed in detail. No major barriers to patient understanding were identified. An opportunity to ask questions regarding the treatment plan was provided. All questions were answered. The patient expressed understanding and agreement with the above treatment plan. The patient is aware they should contact our office by phone for worsening of their current condition or the appearance of new urologic symptoms. Compliance is encouraged with any medications and followup testing that is ordered. It is a privilege to participate in the urologic care of your patient. If you have any questions or concerns regarding treatment for the above conditions, or other urologic issues, please do not hesitate to contact me. The office telephone contact is [phone]. This note is constructed using voice recognition software. While every effort has been made to ensure accuracy barrel cutter errors may have been included. Yours sincerely, Dr Santos Bahena MD, [facility] - Urology Providers of Expert, Compassionate Care for the Genitourinary System Coding Level of Care Code Est Pt Level 4 (05366) Diagnoses Urinary urgency R39.15 Urinary frequency R35.0
== END 2024-03-13 15:10 | disposition home or self-care (01) ==
PROVIDERS: PCP Family Medicine; Visit Provider Urology
DX: R39.15 Urgency of urination (principal); R35.0 Frequency of micturition
CPT/HCPCS: 99214

== ENCOUNTER → 2024-03-13 14:28 | Outpatient (BNVA) | payer OTHER, SELFPAY | PROVIDERS: PCP Family Medicine; Visit Provider Urology ==

== ENCOUNTER 2024-03-19 15:06 | Outpatient (REF) | payer OTHER, SELFPAY ==
--- NOTE | ~2024-03-19 | MM_ITS ---
EXAMINATION: MM SCREENING DIGITAL BREAST TOMOSYNTHESIS, BILATERAL CLINICAL INFORMATION: Screening. Asymptomatic. COMPARISON: Mammography: This study is compared with prior exams dating back to TECHNIQUE: Digital breast tomosynthesis is performed in both the craniocaudal and mediolateral oblique views along with computer-aided detection (CAD). Synthesized 2D images are generated from the tomosynthesis. FINDINGS: The breasts are almost entirely fatty (ACR BI-RADS breast composition Category a). There are no significant masses, abnormal calcifications, or other abnormalities. MM/MM tomosynthesis screening BI IMPRESSION: No mammographic evidence of malignancy. ASSESSMENT: BI-RADS BI-RADS 1 - Negative RECOMMENDATION: Routine annual mammography screening. 1 year F/U This examination should not preclude the clinical evaluation of a suspicious palpable abnormality. This patient's information was entered into a reminder system with a target due date for their next mammogram. Electronically signed by: Jasmyne Etienne MD 04/16/2024 07:47 AM EDT
== END 2024-03-19 15:07 | disposition home or self-care (01) ==
LOC: HO.MAMMO 15:06
PROVIDERS: PCP Family Medicine; Visit Provider Family Medicine
DX: Z12.31 Encounter for screening mammogram for malignant neoplasm of breast (principal)
CPT/HCPCS: 77063; 77067

== ENCOUNTER → 2024-03-19 15:15 | Outpatient (BNV) | payer OTHER, SELFPAY | PROVIDERS: PCP Family Medicine; Visit Provider Radiology Diagnostic Radiology | DX: Z12.31 Encounter for screening mammogram for malignant neoplasm of breast (principal) | CPT/HCPCS: 77063; 77067 ==

== ENCOUNTER 2024-04-29 11:03 | Day surgery (SDC) | payer OTHER, SELFPAY ==
--- NOTE | 2024-04-26 10:37 | P.CONAN_ITS ---
Documented by User: Karolina Moody NP 04/26/24 10:38 HPI - Anesthesia Eval Consult details Narrative: 69yo F for Interstim Generator Removal and replace No PMHx provided by Urology office. ? htn / hld based on external rx list. PMFSH Active Problems Active Problems: All Active Problems Urinary incontinence, mixed (Acute) Urinary frequency (Acute) Urinary urgency (Acute) Lower urinary tract symptoms (Acute) Hx of sleep apnea (Acute) Past Medical History Medical History (Updated 04/29/24 @ 11:42 by Alessandra Melendez RN) Urge incontinence of urine Hx of hypercholesterolemia Hx of essential hypertension History of depression History of anxiety History of fibromyalgia Family History Family History Mother HTN (hypertension) Sister HTN (hypertension) Surgical History Surgical History (Updated 04/29/24 @ 11:37 by Alessandra Melendez RN) History of removal of ovarian cyst Hx of colonoscopy History of carpal tunnel surgery Social History Social History Are you a primary health and social care teacher to a significant other at home: No Do you presently have visiting nurse or other home services: No Alcohol intake: current Patient Tobacco Use Status: Former Tobacco user Have you been hit, kicked, punched, or otherwise hurt by someone within the past year? If so, by whom?: No Are you DNR?: No Advance Directives: No Advance Directives Information Provided: Yes Recently lost weight without trying: No Nutrition Risks: No Nutritional Risk Meds Allergies Allergy/AdvReac Type Severity Reaction Status Date / Time No Known Allergies Allergy Verified 04/29/24 11:16 Home Medications ?Medication ?Instructions ?Recorded ?Confirmed ?Last Taken ?Type clonazepam 0.5 mg tablet 0.5 - 1 tab PO TID PRN anxiety 02/13/21 04/29/24 04/29/24 History gabapentin 800 mg tablet 800 mg PO BID 02/13/21 04/29/24 04/29/24 History hydrochlorothiazide 25 mg tablet 25 mg PO DAILY 02/13/21 04/29/24 04/29/24 History oxcarbazepine 150 mg tablet 150 mg PO TID 02/13/21 04/29/24 04/29/24 History simvastatin 20 mg tablet 20 mg PO BEDTIME 02/13/21 04/29/24 04/29/24 History venlafaxine 150 mg 150 mg PO BID 02/13/21 04/29/24 04/29/24 History capsule,extended release 24 hr Exam Pertinent Lab Results Pertinent Lab Results: Laboratory Tests 01/27/24 10:27 Sodium 144 Potassium 4.0 Chloride 107 Carbon Dioxide 25 BUN 16 Creatinine 0.73 Assessment and Plan Assessment Anesthesia Assessment: Chart Reviewed Documented by User: Agata Martinez MD 04/29/24 11:58 [facility] Past Medical History Medical History (Updated 04/29/24 @ 11:42 by Alessandra Melendez RN) Urge incontinence of urine Hx of hypercholesterolemia Hx of essential hypertension History of depression History of anxiety History of fibromyalgia Family History Family History Mother HTN (hypertension) Sister HTN (hypertension) Family history of problems with anesthesia: No Surgical History Surgical History (Updated 04/29/24 @ 11:37 by Alessandra Melendez RN) History of removal of ovarian cyst Hx of colonoscopy History of carpal tunnel surgery History of Problems with Anesthesia: No Social History Social History Are you a primary health and social care teacher to a significant other at home: No Do you presently have visiting nurse or other home services: No Alcohol intake: current Patient Tobacco Use Status: Former Tobacco user Have you been hit, kicked, punched, or otherwise hurt by someone within the past year? If so, by whom?: No Are you DNR?: No Advance Directives: No Advance Directives Information Provided: Yes Recently lost weight without trying: No Nutrition Risks: No Nutritional Risk Meds Allergies Allergy/AdvReac Type Severity Reaction Status Date / Time No Known Allergies Allergy Verified 04/29/24 11:16 Home Medications ?Medication ?Instructions ?Recorded ?Confirmed ?Last Taken ?Type clonazepam 0.5 mg tablet 0.5 - 1 tab PO TID PRN anxiety 02/13/21 04/29/24 04/29/24 History gabapentin 800 mg tablet 800 mg PO BID 02/13/21 04/29/24 04/29/24 History hydrochlorothiazide 25 mg tablet 25 mg PO DAILY 02/13/21 04/29/24 04/29/24 History oxcarbazepine 150 mg tablet 150 mg PO TID 02/13/21 04/29/24 04/29/24 History simvastatin 20 mg tablet 20 mg PO BEDTIME 02/13/21 04/29/24 04/29/24 History venlafaxine 150 mg 150 mg PO BID 02/13/21 04/29/24 04/29/24 History capsule,extended release 24 hr Exam Airway Mallampati Class: II TM Dist: >3cm Neck ROM: Full Heart: rrr Lungs: cta Assessment and Plan Assessment Anesthesia Assessment: Anesthesia Plan Discussed Final Anesthetic Review Family History of Problems with Anesthesia: No History of Problems with Anesthesia: No NPO: Yes ASA Class: III Final Preanesthetic Review: No Changes in Pt Med Stat, Meds/Allgs Chart Reviewed and Consent Obtained/Reviewed Patient Risk: Low Procedure Risk: Low Anesthetic Plan Anesthetic Plan: MAC: Disposition: Standard PACU
[2024-04-29] VITALS (9 sets, daily range): BP systolic 105–137; BP diastolic 51–74; PULSE 59–66; RESP 16–18; TEMP 36.1–36.7; O2SAT 94–96; BMI 36.7
[2024-04-29] MEDS: Lactated Ringers 1,000 ML 100 ML IVCONT (11:30)
--- NOTE | 2024-04-29 11:54 | MHC.SHP ---
Pre-Procedural Eval Section A - 24 Hr Update-Section A only Date of Service: 04/29/24 The patient is an INPATIENT: No Changes since office visit: No Cold of Flu in the past 2 weeks, No New Medical Problems, No Changes in Medication and No Patient answered all questions The patient has been examined within 24 hours of the surgical procedure. The History & Physical has been completed within 30 days and I have reviewed it.: Yes Section B - Complete if H&P > 30 days Chief Complaint: Mixed incontinence Details of Present Illness: InterStim lead, generator removal and replacement Relevant Family History (Specify if Yes): No Relevant Social History: None Present Medications: see Short Stay Collaborative assessment Medical History: No relevant PMH History of Previous Operations: Relevant previous surgery/procedure and date(s) Allergies: Allergies Allergy/AdvReac Type Severity Reaction Status Date / Time No Known Allergies Allergy Verified 04/29/24 11:16 Review of Systems Sugical H&P ROS: Negative: Constitution, Cardiovascular, Respiratory, Neurological, Psychiatric, Hem-Onc, Allergic/Immunologic, Gastrointestinal, Genitourinary, Musculoskeletal, Integumentary, Endocrine and Eyes/Ears/Nose/Throat Exam Surgical H&P Exam: Normal: HEENT, Normal: Heart, Normal: Lungs, Normal: Extremities, Normal: Abdomen, Normal: Skin and Normal: Neurological Plan Diagnosis/Plan: Unchanged (InterStim lead, generator removal and replacement) I have reviewed the history and physical and performed a pertinent physical examination on my patient. No changes have occurred unless specified. Time Spent With Patient Time: Total time managing care of this patient today ____ minutes.
--- NOTE | 2024-04-29 14:18 | P.OP_ITS ---
Operative Note Operative Note Date of Service: 04/29/24 Narrative: PreOperative Diagnosis: Overactive bladder with urinary urgency and frequency Post Operative Diagnosis: Overactive bladder with urinary urgency and frequency Procedure: 1.) Removal of InterStim lead 2.) Removal of InterStim battery 3.) Placement of InterStim lead 4.) Placement of InterStim battery Surgeon: Dr Santos Bahena Anesthesia: sedation Indications for procedure: Urinary urgency and frequency Procedure: After informed consent was verified the patient was brought to the operating room. Sedation anesthesia was administered per protocol. The patient was placed in a prone position and prepped and draped in a sterile fashion. Safety pause time-out was performed. Battery location and lead were on left side. Prior incisions were seen for prior unit that had been on right side. Images were taken of existing lead placement. Local anesthetic was infiltrated around the initial battery pocket incision on the left lateral superior buttock. Incision was made and taken down till the battery was encountered. The battery pocket was opened and a battery brought o ut to the skin. Using the C-arm and a snap the lead entering S3 on the left side was targeted. Local anesthetic was infiltrated around the prior incision and incision made through the skin. Using blunt dissection the original lead was isolated and brought up through our skin incision. This was get disconnected from the battery to give us the full lead in the sacral position. The lead was dissected down until we could palpate the transition to the thickened plastic. Using a right angle clamp we were able to fully withdrawal the old lead from its position in the S3 foramen. Using the C-arm in an AP and lateral view the finding needle was introduced into the S3 foramen running from a caudad to chordal direction. Using the it project lead we could confirm good toe movement and Mikki response. The internal introducer from the needle was removed and the control lead placed. The finder needle was removed and the dilator sheath introduced. Under fluoroscopic guidance the dilator sheath was advanced till the marker was seen mid point through the sacral bone on the lateral image. The internal cannula from the dilator was removed. The guidewire was removed. The active lead was then introduced through the dilator sheath and advanced so that the 3rd and 4th marked electrodes crossed the internal boundary line of the sacrum. The testing electrode was then hooked up to each of the wire electrodes 0 through 3 and good Mikki and toe response is was seen at low amplitude 2.0 amps. This confirmed the clinically relevant position of the live wire. Responses were best in position 0 and 1. Under live fluoroscopy the introducer sheath was removed deploying the tines of the wire ensuring that the live wire remained in the previously described position. The tunneling device was then used to bridge the distance between the sacral vertical incision and the desired location of the battery pocket. The live wire was placed through the tunneling device and brought out into the battery pocket. The sacral incision was washed with water. A new battery was connected to the live wire and placed into the subcutaneous pocket. The battery was tested and had positive picking table worker and displayed normal impedance on all 4 channels. The battery pocket had been washed with sterile water prior to placement of the battery. Interrupted 3-0 Vicryl sutures were used to close the defect spaces and bring skin edges together. Running 4-0 Monocryl sutures were used to appose skin edges. Incisions were dressed using skin glue followed by Tegaderm dressing. Patient tolerated procedure well was extubated in operating room transferred in stable condition to the recovery area. CPT full device replacement 27136, [id number] [id number], [id number]
[2024-04-29] MEDS: fentaNYL citrate/PF 100 MCG/2 ML VIAL 50 MCG IVPUSH (14:30)
[2024-04-29] MEDS: Acetaminophen 325 MG TABLET 975 MG PO (14:31)
== END 2024-04-29 15:15 | disposition home or self-care (01) ==
PROVIDERS: PCP Family Medicine; Visit Provider Urology
PROC: (CPT 64590; principal; 2024-04-29 12:30)
DX: N39.46 Mixed incontinence (principal); N32.81 Overactive bladder; R35.0 Frequency of micturition; Z79.899 Other long term (current) drug therapy; Z87.891 Personal history of nicotine dependence
CPT/HCPCS: 64590; 64561; C1767; C1778; C1787; J0690; J1580; J2250; J2704; J2795; J3010

== ENCOUNTER → 2024-04-29 11:03 | Outpatient (BNV) | payer OTHER, SELFPAY | PROVIDERS: PCP Family Medicine; Visit Provider Urology | DX: N39.46 Mixed incontinence (principal) | CPT/HCPCS: 64561; 64590; 76000 ==

== ENCOUNTER 2024-06-01 09:08 | Outpatient (REF) | payer OTHER, SELFPAY ==
[2024-06-01 09:38] LABS: MANUAL DIFF FLAG NO
[2024-06-01 10:03] LABS: Basophils Percent Auto 0.6 % (0-2); Eosinophils Absolute Auto 0.5 X10*3/uL (0.0-0.4); Eosinophils Percent Auto 7.7 % (0-4); Hematocrit 40.4 % (37.0-47.0); Hemoglobin 13.6 g/dl (12.0-16.0); Imm Gran Abs Auto 0.04 X10*3/uL (0.00-0.03); Imm Gran Pct Auto 0.6 % (0.0-0.4); Lymphocytes Absolute Auto 1.9 X10*3/uL (1.2-4.9); Mean Corpuscular HGB Conc 33.7 g/dl (31.0-35.0); Mean Corpuscular Hemoglobin 31.9 pg (27.0-33.0); Mean Corpuscular Volume 94.6 fL (80.0-98.0); Mean Platelet Volume 8.9 fL (9.4-12.3); Monocytes Absolute Auto 0.5 X10*3/uL (0.1-1.2); Monocytes Percent Auto 7.3 % (2-11); Neutrophils Percent Auto 56.8 % (45-73); Platelet Count 317 X10*3/uL (160-400); Red Blood Count 4.27 X10*6/uL (4.20-5.50); Red Cell Distribution Width 13.3 % (11.0-16.0)
[2024-06-01 10:17] LABS: Alanine Aminotransferase 22 U/L (0-31); Albumin Level 4.3 g/dL (3.5-5.0); Alkaline Phosphatase 79 U/L (39-117); Anion Gap 14 (12-20); Aspartate Amino Transferase 16 U/L (5-31); Bilirubin Total 0.4 mg/dL (0.0-1.0); Blood Urea Nitrogen 14 mg/dL (9-16); Calcium 9.5 mg/dL (8.4-10.2); Carbon Dioxide 30 mmol/L (22-29); Chloride 102 mmol/L (96-108); Cholesterol 232 mg/dL (<200); Estimated Glomerular Filt Rate > 60; Glucose Fasting 93 mg/dL (60-99); HDL Cholesterol 62 mg/dL (>40); LDL Cholesterol Calculated 133 mg/dL (<100); Potassium 4.3 mmol/L (3.3-5.1); Sodium 142 mmol/L (135-145); Total Protein 7.5 g/dL (6.5-8.0); Triglycerides 188 mg/dL (<150)
== END 2024-06-01 09:09 | disposition home or self-care (01) ==
LOC: HO.LAB 09:08
PROVIDERS: PCP Family Medicine; Visit Provider Nurse Practitioner Psychiatric/Mental Health
DX: Z79.899 Other long term (current) drug therapy (principal)
CPT/HCPCS: 36415; 80053; 80061; 85025

== ENCOUNTER 2024-12-21 09:19 | Outpatient (REF) | payer OTHER, SELFPAY ==
[2024-12-21 10:41] LABS: Alanine Aminotransferase 30 U/L (0-31); Albumin Level 4.2 g/dL (3.5-5.0); Alkaline Phosphatase 85 U/L (39-117); Anion Gap 15 (12-20); Aspartate Amino Transferase 23 U/L (5-31); Bilirubin Direct 0.1 mg/dL (0.0-0.5); Bilirubin Total 0.3 mg/dL (0.0-1.0); Blood Urea Nitrogen 13 mg/dL (9-16); Carbon Dioxide 28 mmol/L (22-29); Chloride 104 mmol/L (96-108); Cholesterol 212 mg/dL (<200); Estimated Glomerular Filt Rate > 60; HDL Cholesterol 63 mg/dL (>40); LDL Cholesterol Calculated 124 mg/dL (<100); Potassium 4.4 mmol/L (3.3-5.1); Sodium 143 mmol/L (135-145); Total Protein 7.4 g/dL (6.5-8.0); Triglycerides 127 mg/dL (<150)
[2024-12-21 10:57] LABS: Free T4 (Free Thyroxine) 0.86 ng/dL (0.71-1.85); Thyroid Stimulating Hormone 1.66 uIU/mL (0.32-4.0)
== END 2024-12-21 09:20 | disposition home or self-care (01) ==
LOC: HO.LAB 09:19
PROVIDERS: PCP Family Medicine; Visit Provider Family Medicine
DX: I10 Essential (primary) hypertension (principal); K75.81 Nonalcoholic steatohepatitis (NASH); E78.00 Pure hypercholesterolemia, unspecified; E03.9 Hypothyroidism, unspecified
CPT/HCPCS: 36415; 80051; 80061; 80076; 82550; 82565; 84439; 84443; 84520

== ENCOUNTER 2025-03-25 14:53 | Outpatient (REF) | payer OTHER, SELFPAY | END 2025-03-25 14:54 | disposition home or self-care (01) | LOC: HO.MAMMO 14:53 | PROVIDERS: PCP Physician Assistant; Referring Provider Physician Assistant; Visit Provider Family Medicine | DX: Z12.31 Encounter for screening mammogram for malignant neoplasm of breast (principal) | CPT/HCPCS: 77063; 77067 ==

== ENCOUNTER → 2025-03-25 15:15 | Outpatient (BNV) | payer OTHER, SELFPAY | PROVIDERS: PCP Physician Assistant; Referring Provider Physician Assistant; Visit Provider Radiology Body Imaging | DX: Z12.31 Encounter for screening mammogram for malignant neoplasm of breast (principal) | CPT/HCPCS: 77063; 77067 ==

== ENCOUNTER 2025-05-05 14:43 | Outpatient (AMB) | payer OTHER, SELFPAY ==
--- NOTE | 2025-05-05 14:56 | MHC.PC.OV ---
Vital Signs 05/05/25 15:08 05/05/25 15:18 Height 5 ft 1 in Weight 85.729 kg BMI 35.7 BP 144/78 H 140/70 H Pulse 72 Pulse Source Pulse Oximeter Temp 96.9 F Temp Source Temporal Artery Scan Pulse Oximetry (%) 97 Oxygen Delivery Method Room Air Intake Visit Reasons: 3 MO F/UP - RAYA PT - see comments Taper/Finisher Required: No Accompanied by: Self / Same As Patient Allergies No Known Allergies Allergy (Verified 05/05/25 15:14) Medication List - Last Reconciled 05/05/25 by LUZ Jacome clonidine HCl 0.1 mg PO BID gabapentin 800 mg PO BID hydrochlorothiazide 25 mg PO DAILY levothyroxine 112 mcg PO QAM lisinopril 5 mg PO DAILY oxcarbazepine 300 mg PO BID simvastatin 20 mg PO BEDTIME venlafaxine ER 150 mg PO BID Tobacco use date assessed: 05/05/25 Fall risk assessment: 2 + Falls in past year Last assessed Fall Risk: 05/05/25 Dental Screening Dental Screen Date: 05/05/25 Did you have a dental visit in the last 12 months?: No Did you have a dental problem in the last 6 months where you did not have access to dental care?: No Was dental information given to patient?: No HPI HPI Comments History of Present Illness Details 70-year-old female with history of hypertension, hyperlipidemia, Islas, varicose veins, fibromyalgia, asthma, depression/anxiety, history of CVA, urinary incontinence presenting to the office today for management of chronic conditions and to establish care. Former patient of Dr. Epstein, seen about 4 months ago. Urinary incontinence-s/p stent placement and sling. Following with Dr. Bahena. Symptoms well managed Hyperlipidemia-last LDL 124. On simvastatin 20 mg Hypertension-initial blood pressure 144/78, recheck 140/70. On hydrochlorothiazide 25 mg daily. Major depressive disorder/anxiety-following CVA 20 years ago. History of SI, hospitalized for several days following her CVA. No ongoing SI. Feels symptoms are well managed. Follows with [facility] On oxcarbazepine 150 mg 3 times daily, venlafaxine 150 mg twice daily ER, clonazepam p.r.n.. BK-not using CPAP Obesity-reports she is following a healthy diet. Does some cardio as well as stretching. History of CVA-no longer on baby aspirin. On statin. Had multiple tests, no clear reason as to why she had a stroke. Does have ongoing neuropathy on the left side following CVA. No longer following with Neurology. fibromyalgia-on venlafaxine. No vigorous exercise Concerns: None except for above Health Maintenance: Mammograms up-to-date Colonoscopy up-to-date DEXA scan-not interested ROS: see hpi EXAM: Constitutional - Awake and Alert, No apparent distress Eyes - PERRL Cardiovascular - S1S2, RRR, No edema Respiratory - Normal lung expansion, Normal respiratory effort, No respiratory distress, CTA bilaterally Extremities - no calf tenderness bilaterally, no swelling Skin - Warm/Dry Neurological - Alert & oriented x3 Psychological - Appropriate affect [facility] Medical History (Updated 05/05/25 @ 15:22 by LUZ Jacmoe) Obesity, class 2 Neuropathic pain of left lower extremity CVA (cerebral vascular accident) HLD (hyperlipidemia) HTN (hypertension) Urge incontinence of urine Hx of hypercholesterolemia Hx of essential hypertension History of depression History of anxiety History of fibromyalgia Surgical History (Updated 05/05/25 @ 07:37 by Nuha Sales) History of removal of ovarian cyst Hx of colonoscopy (~01/23/17) History of carpal tunnel surgery Family History Mother HTN (hypertension) Sister HTN (hypertension) Social History Housing: House Are you a primary child care team lead to a significant other at home: No Do you presently have visiting nurse or other home services: No Alcohol intake: current Patient Tobacco Use Status: Former Tobacco user e-Cigarette/Vaping Use: Never Used service: No Current occupational status: retired and disabled Cognitive needs: No Hearing needs: No Vision needs: Yes (Rx glasses) Questionnaire PHQ-9 Over the last 2 weeks, how often have you been bothered by any of the following problems? 1. Little interest or pleasure in doing things: not at all 2. Feeling down, depressed, or hopeless: several days 3. Trouble falling or staying asleep, or sleeping too much: nearly every day 4. Feeling tired or having little energy: several days 5. Poor appetite or overeating: more than half the days 6. Feeling bad about yourself - or that you are a failure or have let yourself or your family down: more than half the days 7. Trouble concentrating on things, such as reading the newspaper or watching television: nearly every day 8. Moving or speaking so slowly that other people could have noticed. Or the opposite - being so fidgety or restless that you have been moving around a lot more than usual: several days 9. Thoughts that you would be better off or of hurting yourself in some way: several days Total score: 14 Source: Developed by Drs. Carlos Williamson, Anna Marie Nguyen, Ashwin Oh and colleagues, with an educational ludin from [employer]. Thrive Questionnaire Date Thrive assessed: 05/05/25 I am a: Patient What is your living situation today?: I have a steady place to live Within the past 12 months, did the food you bought not last and you didn't have the money to get more?: Never true Within the past 12 months, did you worry whether your food would run out before you got money to buy more?: Never true Do you have trouble paying for medicines?: No Do you have trouble getting transportation to medical appointments?: No Do you have trouble paying your heating and electricity bill?: No Do you have trouble taking care of your child, family member or friend?: No Do you have trouble with day-to-day activities such as bathing, preparing meals, shopping, managing finances, etc.?: No Are you currently unemployed and looking for a job?: No Are you interested in more education?: No Please select the resources that you would like help with: None THRIVE Score: 0 AUDIT C Alcohol Use Questionnaire (AUDIT-C) 1. How often do you have a drink containing alcohol?: 2-4 times a month Total Score: 2 LENNY-7 AMB Questionnaire LENNY-7 Date LENNY - 7 assessed: 05/05/25 Feeling nervous, anxious, or on edge: 2 = More than half the days Not being able to stop or control worryin = Several days Worrying too much about different things: 1 = Several days Trouble relaxin = Several days Being so restless that it is hard to sit still: 2 = More than half the days Becoming easily annoyed or irritable: 3 = Nearly every day Feeling afraid as if something awful might happen: 2 = More than half the days Total LENNY-7 score (0-4 normal; 5-9 mild; 10-14 moderate; 15-21 severe): 12 Source: Developed by Drs. Carlos Williamson, Anna Marie Nguyen, Ashwin Oh and colleagues, with an educational ludin from [employer]. Physical exam (Primary Care) Vital Signs: Last Vital Signs Temp 96.9 F 05/05/25 15:08 Pulse 72 05/05/25 15:08 BP 140/70 H 05/05/25 15:18 Pulse Ox 97 05/05/25 15:08 Oxygen Delivery Method Room Air 05/05/25 15:08 BMI result Body Mass Index 35.7 Tobacco/Smoking Status: Tobacco use Status Tobacco use date assessed 05/05/25 05/05/25 15:19 Patient Tobacco Use Status Former Tobacco user 05/05/25 14:56 e-Cigarette/Vaping Use Never Used 05/05/25 15:19 PHQ-9: PHQ-9 Score PHQ-9: Total score 14 05/05/25 15:21 Thrive Assessment: Date of Thrive Assessment Date Thrive assessed 05/05/25 05/05/25 15:21 Coding Level of Care Code New Pt Level 4 (41149) Complex EM visit Add On G2211 Diagnoses Urinary incontinence, mixed N39.46 HTN (hypertension) I10 HLD (hyperlipidemia) E78.5 Neuropathic pain of left lower extremity M79.2 Obesity, class 2 E66.812 BK (obstructive sleep apnea) G47.33 Assessment & Plan Assessment & Plan (1) Urinary incontinence, mixed: Code(s): N39.46 - Mixed incontinence Category: Medical Plan: Controlled. Continue following with Dr. Bahena (2) HTN (hypertension): Code(s): I10 - Essential (primary) hypertension Category: Medical Plan: Uncontrolled. Continue hydrochlorothiazide 25 mg daily and lisinopril 5 mg daily. Check blood pressures at home and contact the office if still above 140/90 (3) HLD (hyperlipidemia): Code(s): E78.5 - Hyperlipidemia, unspecified Category: Medical Plan: Mildly elevated LDL 124, goal less than 100. Continue simvastatin and work on weight loss efforts. (4) Neuropathic pain of left lower extremity: Code(s): M79.2 - Neuralgia and neuritis, unspecified Category: Medical Plan: Continue gabapentin (5) Obesity, class 2: Code(s): E66.812 - Obesity, class 2 Category: Medical Plan: Discussed weight loss efforts and healthy diet. Recommend moderate intensity exercise for at least 150 minutes weekly. Will order Zepbound to assist with cravings as well as weight loss. This will also benefit her sleep apnea and hypertension as well as cholesterol (6) BK (obstructive sleep apnea): Code(s): G47.33 - Obstructive sleep apnea (adult) (pediatric) Category: Medical Plan: Not interested in repeat sleep study. States she will not use CPAP mask Medications: New lisinopril 5 mg PO DAILY 90 tabs 0RF
[2025-05-05 15:08] VITALS: BP 144/78; PULSE 72; TEMP 36.1; O2SAT 97; BMI 35.7
[2025-05-05 15:18] VITALS: BP 140/70
== END 2025-05-05 15:41 | disposition home or self-care (01) ==
LOC: HO.HMCHD 14:43
PROVIDERS: PCP Physician Assistant; Visit Provider Physician Assistant
DX: N39.46 Mixed incontinence (principal); I10 Essential (primary) hypertension; E78.5 Hyperlipidemia, unspecified; M79.2 Neuralgia and neuritis, unspecified; E66.812 Obesity, class 2; G47.33 Obstructive sleep apnea (adult) (pediatric)